=== PATIENT | male | born 1950 | race Hispanic/Latino ===

== ENCOUNTER → 2019-11-10 | Outpatient (CLI) | payer OTHER | END | disposition home or self-care (01) | LOC: OIH 13:48 | PROVIDERS: ATTEND Internal Medicine Nephrology | DX: Z13.6 Encounter for screening for cardiovascular disorders (principal) | CPT/HCPCS: 75571 ==

== ENCOUNTER → 2021-08-06 | Outpatient (CLI) | payer MEDICARE, BC | LOC: RAH 10:31 | PROVIDERS: ATTEND Physical Medicine & Rehabilitation | DX: M47.26 Other spondylosis with radiculopathy, lumbar region (principal); M54.50 Low back pain, unspecified | CPT/HCPCS: 72114 ==

== ENCOUNTER → 2021-08-26 | Outpatient (CLI) | payer MEDICARE, BC | END | disposition home or self-care (01) | LOC: RAH 12:57 | PROVIDERS: ATTEND Physical Medicine & Rehabilitation | DX: M51.26 Other intervertebral disc displacement, lumbar region (principal); M48.07 Spinal stenosis, lumbosacral region; M54.16 Radiculopathy, lumbar region | CPT/HCPCS: 72148 ==

== ENCOUNTER → 2021-09-13 | Outpatient (CLI) | payer MEDICARE, BC | END | disposition home or self-care (01) | LOC: RAH 10:56 | PROVIDERS: ATTEND Physical Medicine & Rehabilitation | DX: M50.321 Other cervical disc degeneration at C4-C5 level (principal); M50.322 Other cervical disc degeneration at C5-C6 level; M48.02 Spinal stenosis, cervical region | CPT/HCPCS: 72141 ==

== ENCOUNTER → 2022-08-04 | Outpatient (CLI) | payer MEDICARE ==
[~2022-08-04] MED LIST: IOHEXOL 350 MG/ML 100ML INFUS..BTL IV ONE
== END | disposition home or self-care (01) ==
LOC: RAH 07:27
PROVIDERS: ATTEND Internal Medicine Cardiovascular Disease
DX: I20.9 Angina pectoris, unspecified (principal); M47.815 Spondylosis without myelopathy or radiculopathy, thoracolumbar region
CPT/HCPCS: 75574; Q9967

== ENCOUNTER → 2022-09-03 | Outpatient (CLI) | payer MEDICARE | END | disposition home or self-care (01) | LOC: RAH 16:28 | PROVIDERS: ATTEND Physician Assistant | DX: M17.12 Unilateral primary osteoarthritis, left knee (principal) | CPT/HCPCS: 73562 ==

== ENCOUNTER → 2023-01-30 | Outpatient (CLI) | payer MEDICARE | END | disposition home or self-care (01) | LOC: RAH 07:55 | PROVIDERS: ATTEND Internal Medicine Nephrology | DX: R94.4 Abnormal results of kidney function studies (principal) | CPT/HCPCS: 76770 ==

== ENCOUNTER → 2023-02-11 | Outpatient (CLI) | payer MEDICARE ==
[2023-02-11 15:14] LABS: CREATININE 1.4 mg/dL (0.5-1.5)
== END | disposition home or self-care (01) ==
LOC: LAB 14:11
PROVIDERS: ATTEND Internal Medicine Gastroenterology
DX: R10.13 Epigastric pain (principal)
CPT/HCPCS: 36415; 82565; 84520

== ENCOUNTER → 2023-02-17 | Outpatient (CLI) | payer MEDICARE ==
[~2023-02-17] MED LIST changes: -IOHEXOL 350 MG/ML 100ML INFUS..BTL IV ONE; +IOHEXOL-350 75 ML VIAL IV ONE
== END | disposition home or self-care (01) ==
LOC: RAH 07:49
PROVIDERS: ATTEND Internal Medicine Gastroenterology
DX: I71.40 Abdominal aortic aneurysm, without rupture, unspecified (principal); R10.13 Epigastric pain; M47.815 Spondylosis without myelopathy or radiculopathy, thoracolumbar region
CPT/HCPCS: 74170; Q9967

== ENCOUNTER 2023-06-29 08:00 | Observation (INO) | payer MEDICARE ==
[~2023-06-29] VITALS: Ht 182.9 cm; Wt 105.8 kg
[2023-06-29 12:23] VITALS: BP 123/71; PULSE 56; RESP 15
[2023-06-29] MEDS ORDERED: POLY510P31 PO (12:57)
[2023-06-29 13:01] LABS: ALBUMIN 3.8 g/dL (3.5-5.0)
[2023-06-29] MEDS ORDERED: OMEP40CA21 PO (15:07)
[2023-06-29] MEDS ORDERED: ROSU20TA73 PO (15:07)
[2023-06-29] MEDS ORDERED: FAMO40TA7 PO (15:07)
[2023-06-29] MEDS ORDERED: OMEG100033 PO (15:07)
[2023-06-29] MEDS ORDERED: METO-408 PO (15:07)
[2023-06-29] MEDS ORDERED: FOLIC ACID PO (15:07)
[2023-07-01] VITALS (27 sets, daily range): BP systolic 92–148; BP diastolic 54–104; PULSE 47–95; RESP 15–20; O2SAT 98–100
[2023-07-01] MEDS: CEFAZOLIN SODIUM 2 GM VIAL ONE (06:02)
[2023-07-01] MEDS: LACTATED RINGERS 1000ML 1,000 ML IV ONE (06:02)
[2023-07-01] MEDS ORDERED: SUCCINYLCHOLINE CHLORIDE 20 MG/ML 10 ML VIAL ONE (07:08)
[2023-07-01] MEDS ORDERED: ROCURONIUM BROMIDE 10MG/1ML 5ML VL ONE (07:08)
[2023-07-01] MEDS ORDERED: MIDAZOLAM HCL 1 MG/ML 2ML VIAL ONE (07:08)
[2023-07-01] MEDS ORDERED: PROPOFOL 10 MG/ML 20ML VIAL IV ONE (07:08)
[2023-07-01] MEDS ORDERED: ROPIVACAINE 0.5% 5MG/ML 30ML ONE (07:11)
[2023-07-01] MEDS ORDERED: FENTANYL CITRATE PF 50 MCG/1 ML 2ML VIAL ONE (07:12)
[2023-07-01] MEDS ORDERED: DEXAMETHASONE SOD PHOSPHATE 10MG/ML 1ML VIAL ONE (07:13)
[2023-07-01] MEDS: CEFAZOLIN SODIUM 2 GM VIAL IVPB ONE (07:20)
[2023-07-01] MEDS ORDERED: POTASSIUM CHLORIDE 10% ELIXIR 20 MEQ/15 ML UDCUP PO PRN (07:30)
[2023-07-01] MEDS ORDERED: KETOROLAC 15MG/ML VIAL (15MG/ML) IV SCH (07:30)
[2023-07-01] MEDS ORDERED: KCL 20 MEQ ERTAB PO PRN (07:30)
[2023-07-01] MEDS ORDERED: POTASSIUM CHLORIDE 20MEQ/100ML 100 ML IV PRN (07:30)
[2023-07-01] MEDS ORDERED: DiphenhydrAMINE HCL 50 MG/ML VIAL IVP PRN (07:30)
[2023-07-01] MEDS ORDERED: ONDANSETRON 4MG INJ IVP PRN (07:30)
[2023-07-01] MEDS ORDERED: CYCLOBENZAPRINE HCL 10 MG TABLET PO PRN (07:30)
[2023-07-01] MEDS ORDERED: CALCIUM CARB 500MG PO PRN (07:30)
[2023-07-01] MEDS ORDERED: FERROUS FUMARATE 324 MG TABLET PO PRN (07:30)
[2023-07-01] MEDS: ROPIVACAINE 0.5% 5MG/ML 30ML ONE (07:39)
[2023-07-01] MEDS: KETOROLAC 30MG VIAL (30MG/ML) ONE (07:39)
[2023-07-01] MEDS: POLYETHYLENE GLYCOL 3350 17 GM POWD.PACK PO SCH (09:00)
[2023-07-01] MEDS: GABAPENTIN 100 MG CAPSULE PO SCH (09:00)
[2023-07-01] MEDS: TRANEXAMIC ACID 1000MG/10ML ONE (09:03)
[2023-07-01] MEDS ORDERED: NEOSTIGMINE METHYLSULFATE 1MG/ML IV ONE (09:04)
[2023-07-01] MEDS ORDERED: GLYCOPYRROLATE 0.2 MG/ML 5 ML VIAL ONE (09:04)
[2023-07-01] MEDS: MEPERIDINE-PF 25 MG/ML SYG ONE ×2 (09:41→09:46)
[2023-07-01] MEDS: KETOROLAC 15MG/ML VIAL (15MG/ML) ONE (10:12)
[2023-07-01] MEDS ORDERED: CEFAZOLIN SODIUM 2 GM VIAL IVPB SCH (12:30)
[2023-07-01] MEDS: CEFAZOLIN SODIUM 2 GM VIAL IVPB SCH (14:59)
[2023-07-01] MEDS: 0.9%NACL 1000ML 1,000 ML IV SCH (15:02)
[2023-07-01] MEDS: KETOROLAC 15MG/ML VIAL (15MG/ML) IV SCH (17:37)
[2023-07-01] MEDS: FISH OIL PO SCH (21:00)
[2023-07-01] MEDS: EPA PO SCH (21:00)
[2023-07-01] MEDS: OMEGA PO SCH (21:00)
[2023-07-01] MEDS: DHA PO SCH (21:00)
[2023-07-01] MEDS: FAMOTIDINE 20MG TAB PO SCH (21:18)
[2023-07-01] MEDS: ATORVASTATIN 40 MG TABLET PO SCH (21:18)
[2023-07-01] MEDS: HYDROCODONE/ACETAMINOPHEN 5/325 MG TAB PO PRN (22:40)
[2023-07-02] VITALS: BP 123/79; PULSE 78; RESP 20
[2023-07-02 04:00] VITALS: BP 103/50; PULSE 59; RESP 20
[2023-07-02 04:05] LABS: HEMATOCRIT 32.7 % (42-54); MEAN CORPUSCULAR HEMOGLOBIN 31.3 pg (27.0-33.0); MEAN CORPUSCULAR HGB CONC 33.3 g/dL (32.0-36.0); RED BLOOD CELL COUNT(AUTO) 3.48 MIL/uL (4.50-6.20); RED CELL DISTRIBUTION WIDTH 12.7 % (11.0-15.5); WHITE BLOOD COUNT (AUTO) 11.3 K/uL (4.8-10.8)
[2023-07-02 04:32] LABS: CREATININE 1.7 mg/dL (0.5-1.3); POTASSIUM 4.2 mmol/L (3.5-5.1)
[2023-07-02] MEDS ORDERED: KETOROLAC 15MG/ML VIAL (15MG/ML) IV PRN (07:30)
[2023-07-02 08:00] VITALS: BP 106/53; PULSE 66; RESP 16
[2023-07-02] MEDS: ASPIRIN 325MG EC TAB PO SCH (08:45)
[2023-07-02] MEDS: METOPROLOL SUCCINATE 25 MG TAB.SR.24H PO SCH (08:46)
[2023-07-02] MEDS ORDERED: NON-FORMULARY MEDICATION 1 EACH (Omeprazole 40 MG) PO SCH (09:00)
[2023-07-02 09:10] VITALS: O2SAT 96
[2023-07-02] MEDS: TRAMADOL HCL 50 MG TABLET PO PRN (11:35)
[2023-07-02 12:00] VITALS: BP 100/56; PULSE 65; RESP 16
[2023-07-02 16:00] VITALS: BP 116/66; PULSE 63; RESP 16
[2023-07-02] MEDS ORDERED: HYDR-4060 PO (17:44)
[2023-07-02] MEDS ORDERED: GABA100C PO (17:44)
[2023-07-02] MEDS ORDERED: CYCL-309 PO (17:44)
[2023-07-02] MEDS ORDERED: ASPI-891 PO (17:44)
[2023-07-03] MEDS ORDERED: GABAPENTIN 100 MG CAPSULE PO SCH (09:00)
[2023-07-04] MEDS ORDERED: BISACODYL 10 MG SUPP.RECT RC PRN (07:30)
== END 2023-07-02 18:20 | disposition home or self-care (01) ==
LOC: DAHIP 07-01 05:55 → 4DH 07-01 10:40
PROVIDERS: ADMIT Student in an Organized Health Care Education/Training Program; ATTEND Student in an Organized Health Care Education/Training Program
DX: M17.12 Unilateral primary osteoarthritis, left knee (principal); D62 Acute posthemorrhagic anemia; I25.10 Atherosclerotic heart disease of native coronary artery without angina pectoris; K21.9 Gastro-esophageal reflux disease without esophagitis; E78.5 Hyperlipidemia, unspecified; Z87.891 Personal history of nicotine dependence
CPT/HCPCS: 82040; 84134; 86140; 36415 ×2; 93005; 87641; 96365; 96366; 96375; 27447; 73560; 97161; 97530 ×4; 80048; 85027; 97116 ×2; G0378 ×30; A4600; A4663; A4215 ×2; A4649 ×4; J7120; J3010; J3490 ×3; J1100; J0330; J2250; J2704; J1885 ×4; J2710; J2175 ×2; J2795 ×2; J0690 ×4; C1713 ×3; G0168; C1776 ×2; A4930; A6255; A5120; A4223; A4222; A4221